=== PATIENT | female | born 1975 | race Hispanic/Latino ===

== ENCOUNTER 2024-03-11 23:50 | Emergency (ER) | payer OTHER ==
[~2024-03-11] VITALS: Ht 172.7 cm; Wt 105.0 kg
[2024-03-12] MEDS ORDERED: ATORVASTATIN CA80 MG PO (00:14)
[2024-03-12] MEDS ORDERED: ASPIRIN 81 MG CHEW PO ONE (00:15)
[2024-03-12] MEDS ORDERED: NITROGLYCERIN 0.4 MG SUBL SL PRN (00:15)
[2024-03-12] MEDS ORDERED: KETOROLAC TROMETHAMINE 30 MG/ML VIAL IV ONE (00:30)
[2024-03-12] MEDS ORDERED: FAMOTIDINE 20 MG/ 2 ML VIAL IV ONE (00:30)
[2024-03-12 00:34] LABS: BASOPHILS 0.5 % (0-2); EOSINOPHILS 1.2 % (0-6); HEMATOCRIT 37.4 % (35.0-50.0); HEMOGLOBIN 12.7 g/dL (12.0-18.0); LYMPHOCYTES 50.8 % (24-44); MCH 30.2 (27-36); MCV 88.7 fl (81-99); MONOCYTES 6.1 % (0-12); NEUTROPHILS 41.4 % (39-80); PLATELET COUNT 299 K/uL (140-440); RBC 4.22 M/ul (4.3-5.7); RDW 12.6 (10.5-15.0)
[2024-03-12 00:53] LABS: ALBUMIN 3.7 g/dL (3.4-5.0); ALBUMIN/GLOBULIN RATIO 1.06 (1.1-2.4); ANION GAP 12.6 (7-21); BILIRUBIN, TOTAL 0.4 ng/dL (0.2-1.0); BUN/CREATININE RATIO 15.78 (6.0-28.6); CALCIUM 8.7 mg/dL (8.5-10.1); CREATININE, SERUM 0.76 mg/dL (0.55-1.02); MAGNESIUM 1.9 mg/dL (1.8-2.4); POTASSIUM 3.6 mmol/L (3.5-5.1); PROTEIN, TOTAL 7.2 g/dL (6.4-8.2)
[2024-03-12 01:21] LABS: BILIRUBIN, URINE NEGATIVE (negative); BLOOD/HGB, URINE TRACE-I (Negative); KETONE, URINE NEGATIVE (Negative); LEUK ESTERASE, URINE NEGATIVE (negative); NITRITE, URINE NEGATIVE (negative); PH, URINE 5.5 (5-7)
[2024-03-12 01:27] LABS: EPITHELIAL CELLS, URINE SQUAMOUS 1+ /lpf (0-1+)
[2024-03-12 01:28] LABS: BACTERIA, URINE RARE /hpf (negative); CASTS, URINE NONE SEEN \\lpf; CRYSTALS, URINE NONE SEEN (0-1+); REFLEX CULTURE, URINE No (No)
[2024-03-12] MEDS ORDERED: NAPROSYN500 MG PO (01:51)
[2024-03-12 02:17] VITALS: BP 143/70
--- NOTE | 2024-03-12 21:29 | EKG ---
[facility] [address] [facility] [place] [address] Signed Normal sinus rhythm Normal ECG No previous ECGs available Confirmed by Marc Degroot MD () on 03/12/2024 9:30:09 PM Electronically Signed By: MARC DEGROOT MD 03/12/242128 PATIENT NAME: JUDY SINGLETON Electrocardiogram DATE OF : 75 PHYSICIAN: MARC DEGROOT MD REPORT #: [id number] REPORT IS CONFIDENTIAL AND NOT TO BE RELEASED WITHOUT AUTHORIZATION
== END 2024-03-12 02:15 | disposition home or self-care (01) ==
LOC: ED 23:50
PROVIDERS: Internal Medicine
DX: M94.0 Chondrocostal junction syndrome [Tietze] (principal); E78.1 Pure hyperglyceridemia; Z79.899 Other long term (current) drug therapy
CPT/HCPCS: 36415; 71045; 80053; 81001; 83690; 83735; 84484; 85025; 93005; 93010; 96374; 96375; 99285-25; A9270; J1885